=== PATIENT | male | born 2000 | race Native Hawaiian/Other Pacific Islander ===

== ENCOUNTER 2022-12-07 09:56 | Emergency (ER) | payer OTHER ==
[~2022-12-07] VITALS: Ht 193 cm; Wt 125.3 kg
[2022-12-07 10:50] LABS: BASO % 0.2 % (0.0-1.0); EOS # 0.3 10^3/uL (0.0-0.5); EOS % 3.3 % (0.0-3.0); HEMOGLOBIN 15.6 g/dl (13.5-17.5); LYMPH # 2.5 10^3/uL (1.5-5.0); LYMPH % 29.5 % (24.0-44.0); MEAN CORPUSCULAR HEMOGLOBIN 29.1 pg (27.0-33.0); MEAN CORPUSCULAR HGB CONC 33.2 g/dl (32.0-36.5); MEAN CORPUSCULAR VOLUME 87.7 fl (80.0-96.0); MONO # 0.7 10^3/uL (0.0-0.8); MONO % 8.5 % (2.0-8.0); NEUTROPHILS % 58.3 % (36.0-66.0); PLATELET COUNT, AUTOMATED 307 10^3/uL (150-450); RED BLOOD COUNT 5.36 10^6/uL (4.30-6.10); WHITE BLOOD COUNT 8.6 10^3/uL (4.0-10.0)
[2022-12-07 10:59] LABS: ERYTHROCYTE SEDIMENTATION RATE 21 mm/hr (0-15)
[2022-12-07 11:17] LABS: ALKALINE PHOSPHATASE 102 U/L (46-116); ALT/SGPT 42 U/L (7.0-40); AST/SGOT 24 U/L (<34); BILIRUBIN,DIRECT < 0.1 MG/DL (<0.4); BILIRUBIN,TOTAL 0.3 MG/DL (0.3-1.2); BLOOD UREA NITROGEN 11 MG/DL (9-23); CALCIUM LEVEL 9.4 MG/DL (8.5-10.1); CARBON DIOXIDE LEVEL 26 MMOL/L (20-31); CHLORIDE LEVEL 105 MMOL/L (98-107); CREATININE FOR GFR 0.98 MG/DL (0.70-1.30); GLOMERULAR FILTRATION RATE > 60.0 (>60); GLUCOSE, FASTING 90 MG/DL (60-100); POTASSIUM SERUM 3.8 MMOL/L (3.5-5.1); SODIUM LEVEL 139 MMOL/L (136-145); TOTAL PROTEIN 7.1 G/DL (5.7-8.2)
[2022-12-07 11:19] LABS: URIC ACID 10.6 MG/DL (3.7-9.2)
[2022-12-07] MEDS ORDERED: NAPR-837 PO (12:45)
[2022-12-07 12:55] VITALS: BP 127/81; TEMP 97.1; O2SAT 99
== END 2022-12-07 13:06 | disposition home or self-care (01) ==
LOC: M ED 09:56
DX: S92.405A Nondisplaced unspecified fracture of left great toe, initial encounter for closed fracture (principal); M10.9 Gout, unspecified; F17.290 Nicotine dependence, other tobacco product, uncomplicated

== ENCOUNTER 2022-12-23 19:33 | Emergency (ER) | payer OTHER ==
[~2022-12-23] VITALS: Ht 193 cm; Wt 122.3 kg
[~2022-12-23 19:33] MED LIST: NAPR-837 PO
[2022-12-24 01:17] VITALS: BP 146/94; TEMP 97.4; O2SAT 98
[2022-12-24 01:42] LABS: BASO % 0.4 % (0.0-1.0); EOS # 0.4 10^3/uL (0.0-0.5); EOS % 3.6 % (0.0-3.0); HEMATOCRIT 45.3 % (42.0-52.0); HEMOGLOBIN 15.3 g/dl (13.5-17.5); LYMPH # 2.4 10^3/uL (1.5-5.0); LYMPH % 22.4 % (24.0-44.0); MEAN CORPUSCULAR HEMOGLOBIN 29.9 pg (27.0-33.0); MEAN CORPUSCULAR HGB CONC 33.8 g/dl (32.0-36.5); MEAN CORPUSCULAR VOLUME 88.5 fl (80.0-96.0); MONO # 0.9 10^3/uL (0.0-0.8); MONO % 8.7 % (2.0-8.0); NEUTROPHILS # 6.8 10^3/uL (1.5-8.5); NEUTROPHILS % 64.2 % (36.0-66.0); PLATELET COUNT, AUTOMATED 279 10^3/uL (150-450); RED BLOOD COUNT 5.12 10^6/uL (4.30-6.10); WHITE BLOOD COUNT 10.7 10^3/uL (4.0-10.0)
[2022-12-24 01:58] LABS: C REACTIVE PROTEIN QUANTITATIV 0.4 MG/DL (<1.0)
[2022-12-24 01:59] LABS: POTASSIUM SERUM 4.6 MMOL/L (3.5-5.1)
[2022-12-24] MEDS ORDERED: KETOROLAC 30 MG/ML 1ML VIAL IV ONE (02:00)
[2022-12-24 02:22] LABS: ERYTHROCYTE SEDIMENTATION RATE 19 mm/hr (0-15)
[2022-12-24 02:49] LABS: URIC ACID 11.1 MG/DL (3.7-9.2)
[2022-12-24] MEDS ORDERED: KETO10TAB PO (03:57)
== END 2022-12-24 04:09 | disposition home or self-care (01) ==
LOC: M ED 19:33
DX: S93.402A Sprain of unspecified ligament of left ankle, initial encounter (principal); S92.425D Nondisplaced fracture of distal phalanx of left great toe, subsequent encounter for fracture with routine healing
CPT/HCPCS: 73610; 73630; 80047; 83605; 84132; 84550; 85025; 85652; 86140; 93971; 96374; 99284; J1885

== ENCOUNTER 2023-01-26 03:38 | Emergency (ER) | payer OTHER ==
[~2023-01-26] VITALS: Ht 193 cm; Wt 120.5 kg
[~2023-01-26 03:38] MED LIST changes: +KETO10TAB PO
[2023-01-26 03:39] VITALS: BP 157/105; TEMP 98.8; O2SAT 96
== END 2023-01-26 06:10 | disposition left against medical advice (07) ==
LOC: M ED 03:38
DX: Z53.21 Procedure and treatment not carried out due to patient leaving prior to being seen by health care provider (principal)